=== PATIENT | male | born 1970 | race Caucasian/White ===

== ENCOUNTER 2016-04-26 10:08 | Emergency (ER) | payer SELFPAY ==
[2016-04-26 10:15] VITALS: BP 125/83
[2016-04-26] MEDS ORDERED: DIPH/PERTUSS(ACELL)/TETANUS VAC/PF 0.5 ML SYR (>=10YO) IM ONE (10:17)
--- NOTE | 2016-04-26 10:19 | ER Document Report ---
ED Medical Screen (RME) - General Stated Complaint: FINGER LACERATION Notes: Pt presents with laceration to left hand 3 & 4 dorsal digits with a saw. Unsure if tetanus up to date. FROM. no active bleeding. Physical Exam - Vital signs Vitals: Temp Pulse Resp BP Pulse Ox 98.3 F 79 16 125/83 100 04/26/16 10:14 04/26/16 10:14 04/26/16 10:14 04/26/16 10:14 04/26/16 10:14 Course - Vital Signs Vital signs: Temp Pulse Resp BP Pulse Ox 98.3 F 79 16 125/83 100 04/26/16 10:14 04/26/16 10:14 04/26/16 10:14 04/26/16 10:14 04/26/16 10:14
[2016-04-26] MEDS ORDERED: LIDOCAINE 1% INJ-PF (10 MG/ML) 30 ML SDV INJ ONE (11:13)
--- NOTE | 2016-04-26 11:47 | ER Document Report ---
Addendum entered and electronically signed by YAEL VIERA FNP 11:47: Discharge - Discharge Disposition: HOME, SELF-CARE Original Note: ED General - General Chief Complaint: Laceration Stated Complaint: FINGER LACERATION Mode of Arrival: Ambulatory - [facility] Onset: Just prior to arrival - Laceration the left third and fourth digit from a cut saw - Related Data Allergies/Adverse Reactions: No Known Allergies Allergy (Verified 04/26/16 10:19) Past Medical History - General Information source: Patient - Social History Smoking Status: Current Every Day Smoker Chew tobacco use (# tins/day): No Frequency of alcohol use: Rare Drug Abuse: Marijuana Family History: None Patient has suicidal ideation: No Patient has homicidal ideation: No Renal/ Medical History: Denies: Hx Peritoneal Dialysis Surgical Hx: Negative - Immunizations Hx Diphtheria, Pertussis, Tetanus Vaccination: Yes Review of Systems - Review of Systems Constitutional: No symptoms reported EENT: No symptoms reported Cardiovascular: No symptoms reported Respiratory: No symptoms reported Gastrointestinal: No symptoms reported Genitourinary: No symptoms reported Male Genitourinary: No symptoms reported Musculoskeletal: No symptoms reported Skin: No symptoms reported Hematologic/Lymphatic: No symptoms reported Neurological/Psychological: No symptoms reported Physical Exam - Vital signs Vitals: Temp Pulse Resp BP Pulse Ox 98.3 F 79 16 125/83 100 04/26/16 10:14 04/26/16 10:14 04/26/16 10:14 04/26/16 10:14 04/26/16 10:14 Interpretation: Normal - General General appearance: Appears well, Alert - HEENT Head: Normocephalic, Atraumatic Eyes: Normal Pupils: PERRL - Respiratory Respiratory status: No respiratory distress Chest status: Nontender Breath sounds: Normal Chest palpation: Normal - Cardiovascular Rhythm: Regular Heart sounds: Normal auscultation Murmur: No - Abdominal Inspection: Normal Distension: No distension Bowel sounds: Normal Tenderness: Nontender Organomegaly: No organomegaly - Back Back: Normal, Nontender - Extremities General upper extremity: Normal inspection, Nontender, Normal color, Normal ROM , Normal temperature General lower extremity: Normal inspection, Nontender, Normal color, Normal ROM , Normal temperature, Normal weight bearing. No: Reynaldo's sign Hand: Tender, Other - Superficial laceration noted no bony involvement neurovascularly intact distal to the affected area strength intact of both digits. - Neurological Neuro grossly intact: Yes Cognition: Normal Orientation: AAOx4 Harmony Coma Scale Eye Opening: Spontaneous Jeanmarie Coma Scale Verbal: Oriented Harmony Coma Scale Motor: Obeys Commands Harmony Coma Scale Total: 15 Speech: Normal Motor strength normal: LUE, RUE, LLE, RLE Sensory: Normal - Psychological Associated symptoms: Normal affect, Normal mood - Skin Skin Temperature: Warm Skin Moisture: Dry Skin Color: Normal Course - Vital Signs Vital signs: Temp Pulse Resp BP Pulse Ox 98.3 F 79 16 125/83 100 04/26/16 10:14 04/26/16 10:14 04/26/16 10:14 04/26/16 10:14 04/26/16 10:14 Procedures - Laceration/Wound Repair Left Dorsal Hand 4th digit Wound length (cm): 3 Wound's Depth, Shape: Superficial, Linear Laceration pre-procedure: Sterile PPE donned, Sterile drapes applied, Shur- Clens applied Anesthetic type: 1% Lidocaine Wound explored: Clean Wound Debrided: Minimal Wound Repaired With: Sutures Suture Size/Type: 4:0 Number of Sutures: 4 Post-procedure wound care: Sterile dressing applied Post-procedure NV exam normal: Yes Discharge - Discharge Disposition: HOME, SELF-CARE
== END 2016-04-26 12:15 | disposition home or self-care (01) ==
LOC: ER 10:08 → EDSEX 10:08 → ER 12:15
PROC: 0HQGXZZ Repair Left Hand Skin, External Approach (ICD-10-PCS; principal; 2016-04-26)
DX: S61.213A Laceration without foreign body of left middle finger without damage to nail, initial encounter (principal); S61.215A Laceration without foreign body of left ring finger without damage to nail, initial encounter; W45.8XXA Other foreign body or object entering through skin, initial encounter; W27.8XXA Contact with other nonpowered hand tool, initial encounter; F17.210 Nicotine dependence, cigarettes, uncomplicated
CPT/HCPCS: 99283; 90471; 73130; 90715; 12002; J3490